=== PATIENT | male | born 1995 | race Two or more races ===

== ENCOUNTER 2019-06-04 17:01 | Emergency (ER) | payer MEDICAID ==
[~2019-06-04] VITALS: Ht 190.5 cm; Wt 86.2 kg
--- NOTE | 2019-06-04 17:20 | NUR ---
r hand and bilateral elbow abscess x 1 week, on ATB PO last dose 2 days ago. Patient a/ox4, breathing even and unlabored, no sob noted.
[2019-06-04] MEDS ORDERED: LIDOCAINE 1%-EPI 1:100,000 20 ML VIAL ONE (17:25)
[2019-06-04] MEDS ORDERED: LIDOCAINE 1%-EPI 1:100,000 50 ML VIAL IJ ONE (17:30)
[2019-06-04 18:05] VITALS: BP 133/68
--- NOTE | 2019-06-04 18:05 | NUR ---
Patient discharged to home in stable condition. Written and verbal after care instructions given. Patient verbalizes understanding of instruction.
== END 2019-06-04 18:06 | disposition home or self-care (01) ==
LOC: ER 17:01
DX: L02.413 Cutaneous abscess of right upper limb (principal); L02.414 Cutaneous abscess of left upper limb; L02.511 Cutaneous abscess of right hand; I48.91 Unspecified atrial fibrillation
CPT/HCPCS: 10061; 99284; J3490

== ENCOUNTER 2020-07-23 15:03 | Emergency (ER) | payer MEDICAID, OTHER ==
[~2020-07-23] VITALS: Ht 190.5 cm; Wt 86.2 kg
--- NOTE | 2020-07-23 15:48 | NUR ---
BIBS TO ER BED 14. AAOX4. NO TIN RESP DISTRESS. AMBULATORY. CAME IN FOR MEDICAL CLEARANCE FOR ADMISSION TO [facility] FOR DETOX FROM OPIOD AND BENZO. NO MEDICAL COMPLAINTS. NO PAIN. MD WAS AT THE BEDSIDE FOR EVAL. ORDERS RECEIVED, NOTED AND CARRIED OUT. URINE COLLECTED, COVID SWAB DONE AND PHLEB AT BEDSIDE FOR BLOOD DRAW.
--- NOTE | 2020-07-23 15:50 | NUR ---
[facility]. [phone]. ZACARIAS FULLER.
[2020-07-23 16:05] LABS: BASOPHILS # (AUTO) 0.1 /CMM (0.0-0.2); BASOPHILS % (AUTO) 0.7 % (0.0-2.0); EOSINOPHILS % (AUTO) 8.5 % (0.0-6.0); HEMATOCRIT 42 % (39-51); HEMOGLOBIN 14.1 g/dL (13.5-17.5); LYMPHOCYTES # (AUTO) 2.5 /CMM (0.8-4.8); LYMPHOCYTES % (AUTO) 26.6 % (20.0-44.0); MEAN CORPUSCULAR HGB CONC 33 g/dl (31.0-36.0); MEAN CORPUSCULAR VOLUME 87 fL (80-96); MONOCYTES # (AUTO) 0.6 /CMM (0.1-1.30); MONOCYTES % (AUTO) 6.1 % (2.0-12.0); NEUTROPHILS # (AUTO) 5.4 /CMM (1.8-8.9); NEUTROPHILS % (AUTO) 58.1 % (43.0-81.0); PLATELET COUNT (AUTO) 299 /CMM (150-450); RED BLOOD CELL COUNT(AUTO) 4.86 MIL/uL (4.5-6.0); WHITE BLOOD COUNT (AUTO) 9.3 K/uL (4.3-11.0)
[2020-07-23 17:00] LABS: CALCIUM, SERUM 9.2 mg/dL (8.5-10.1); CARBON DIOXIDE 31 mmol/L (21-32); CHLORIDE 101 mmol/L (98-107); CREATININE 0.8 mg/dL (0.6-1.3); GLUCOSE 106 mg/dL (74-106); SODIUM SERUM 140 mmol/L (136-145); UREA NITROGEN, BLOOD 9 mg/dL (7-18)
[2020-07-23 17:06] LABS: ALANINE AMINOTRANSFERASE 24 U/L (12-78); ALCOHOL, BLOOD < 3 mg/dL (0-0); ALKALINE PHOSPHATASE 60 U/L (46-116); ASPARTATE AMINOTRANSFERASE 15 U/L (15-37); BILIRUBIN,DIRECT 0.1 mg/dL (0.0-0.2); BILIRUBIN,TOTAL 0.3 mg/dL (0.2-1.0)
[2020-07-23 17:07] LABS: ACETAMINOPHEN < 2 ug/ml (10-30)
--- NOTE | 2020-07-23 17:51 | NUR ---
CALLED [phone]. ZACARIAS FULLER. ETA 15 MIN FOR HAND BRIM [facility]ER
--- NOTE | 2020-07-23 17:58 | NUR ---
Patient discharged to home in stable condition. Written and verbal after care instructions given. Patient verbalizes understanding of instruction.
[2020-07-23 18:00] VITALS: BP 116/77
== END 2020-07-23 18:00 | disposition home or self-care (01) ==
LOC: ER 15:08
DX: Z02.2 Encounter for examination for admission to residential institution (principal); Z20.822 Contact with and (suspected) exposure to COVID-19; F19.10 Other psychoactive substance abuse, uncomplicated; Z86.79 Personal history of other diseases of the circulatory system
CPT/HCPCS: 36415; 80048; 80076; 80299; 80307 ×2; 80320; 84484; 85025; 87426; 93005; 99284; C9803; G0480